=== PATIENT | male | born 1995 | race African-American/Black ===

== ENCOUNTER 2023-08-10 13:08 | Observation (INO) | payer OTHER ==
[2023-08-10 14:15] LABS: BASO % 0.5 % (0-2.0); EOS % 3.1 % (0-4.5); HEMATOCRIT 42.7 % (35.4-49); LYMPH % 24.1 % (8-40); MCH 28.5 pg (25.7-33.7); MCHC 32.7 g/dl (32.0-35.9); MEAN CELL VOLUME 87.3 fl (80-96); MEAN PLT VOLUME 7.4 fl (7.5-11.1); MONO % 8.8 % (3.8-10.2); NEUT % 63.5 % (42.8-82.8); PLATELET COUNT 205 10^3/uL (134-434); RBC 4.89 M/mm3 (4.00-5.60); WHITE BLOOD COUNT 6.1 K/mm3 (4.0-10.0)
[2023-08-10] MEDS: SODIUM CHLORIDE 0.9% 500 ML INFUS.BAG IV ONE ×2 (14:17→15:34)
[2023-08-10 14:22] LABS: INR 0.99 (0.83-1.09); PROTHROMBIN TIME (PATIENT) 11.2 SEC (9.7-13.0)
[2023-08-10 14:26] LABS: ACTIVATED PTT 27.6 SECONDS (25.2-36.5)
[2023-08-10 14:27] LABS: CHLORIDE 110 mmol/L (98-107); POTASSIUM 3.7 mmol/L (3.5-5.1); SODIUM 142 mmol/L (136-145)
[2023-08-10 14:29] LABS: ANION GAP 3 mmol/L (4-13); CALCIUM 8.5 mg/dL (8.5-10.1); CO2 29 mmol/L (21-32)
[2023-08-10 14:30] LABS: ALBUMIN 3.3 g/dl (3.4-5.0); BLOOD UREA NITROGEN 7.1 mg/dL (7-18); MAGNESIUM 2.2 mg/dL (1.8-2.4)
[2023-08-10 14:32] LABS: SGOT/AST 18 U/L (15-37); SGPT/ALT 21 U/L (13-61)
[2023-08-10 14:33] LABS: CREATININE 0.9 mg/dL (0.55-1.3); PHOSPHOROUS 2.2 mg/dL (2.5-4.9)
[2023-08-10 14:34] LABS: BILIRUBIN,TOTAL 0.9 mg/dL (0.2-1); TOT PROT 6.2 g/dl (6.4-8.2)
[2023-08-10 14:35] LABS: ALK PHOS 72 U/L (45-117)
[2023-08-10 14:43] LABS: GLUCOSE,RANDOM 65 mg/dL (74-106)
[2023-08-10] MEDS: DEXTROSE 5%-NORMAL SALINE 500 ML IV ONE (16:35)
[2023-08-10 16:51] LABS: PH,URINE 6.5 (5.0-8.0); URINE APPEARANCE CLEAR; URINE BILIRUBIN NEGATIVE (NEGATIVE); URINE COLOR YELLOW; URINE GLUCOSE (UA) NEGATIVE (NEGATIVE); URINE KETONE NEGATIVE (NEGATIVE); URINE LEUK ESTERASE NEGATIVE (NEGATIVE); URINE NITRITE NEGATIVE (NEGATIVE); URINE PROTEIN NEGATIVE (NEGATIVE)
[2023-08-10 16:57] LABS: COCAINE, UR NEGATIVE (NEGATIVE); METHADONE, UR NEGATIVE (NEGATIVE); URINE BENZODIAZEPINES NEGATIVE (NEGATIVE)
[2023-08-10 16:58] LABS: PHENCYCLIDINE,URINE NEGATIVE (NEGATIVE); URINE BARBITURATES NEGATIVE (NEGATIVE)
[2023-08-10 17:00] LABS: OPIATES, URI NEGATIVE (NEGATIVE); URINE AMPHETAMINES NEGATIVE (NEGATIVE)
[2023-08-10 18:01] LABS: HIV INTERPRETATION NEGATIVE (NEGATIVE)
[2023-08-10] MEDS ORDERED: NAPH,MB-DB/K PH,MBDB POWDER PACKET ONE (18:12)
[2023-08-10] MEDS: NAPH,MB-DB/K PH,MBDB POWDER PACKET PO ONE (18:14)
[2023-08-10 23:37] VITALS: BMI 19.3
[2023-08-11] MEDS: GABAPENTIN 300 MG CAPSULE PO SCH (06:14)
[2023-08-11 08:59] LABS: HEMATOCRIT 39.9 % (35.4-49); HEMOGLOBIN 13.5 GM/dL (11.7-16.9); MCHC 33.8 g/dl (32.0-35.9); MEAN CELL VOLUME 85.7 fl (80-96); MEAN PLT VOLUME 7.7 fl (7.5-11.1); PLATELET COUNT 197 10^3/uL (134-434); RBC 4.66 M/mm3 (4.00-5.60); WHITE BLOOD COUNT 5.2 K/mm3 (4.0-10.0)
[2023-08-11 09:21] LABS: POTASSIUM 4.2 mmol/L (3.5-5.1)
[2023-08-11 09:24] LABS: ALBUMIN 2.9 g/dl (3.4-5.0); BLOOD UREA NITROGEN 8.6 mg/dL (7-18); CALCIUM 8.2 mg/dL (8.5-10.1)
[2023-08-11 09:27] LABS: CREATININE 0.7 mg/dL (0.55-1.3); PHOSPHOROUS 3.2 mg/dL (2.5-4.9)
[2023-08-11 09:29] LABS: BILIRUBIN,TOTAL 0.5 mg/dL (0.2-1); TOT PROT 5.4 g/dl (6.4-8.2)
[2023-08-11] MEDS: risperiDONE 1 MG TABLET PO SCH (10:54)
[2023-08-11 17:44] VITALS: BP 112/72; PULSE 92; RESP 18; TEMP 99
== END 2023-08-11 17:44 | disposition home or self-care (01) ==
LOC: JER 13:08 → JERBED 20:12 → J7W 22:25
PROVIDERS: ADMIT Internal Medicine; ATTEND Internal Medicine
PROC: 3E0337Z Introduction of Electrolytic and Water Balance Substance into Peripheral Vein, Percutaneous Approach (ICD-10-PCS; principal; 2023-08-10)
DX: G93.41 Metabolic encephalopathy (principal); F43.10 Post-traumatic stress disorder, unspecified; F31.9 Bipolar disorder, unspecified; F41.9 Anxiety disorder, unspecified; F84.0 Autistic disorder; L40.9 Psoriasis, unspecified; Z59.00 Homelessness unspecified
CPT/HCPCS: 0241U-QW; 36415; 70450-TC; 71045-TC-FY; 80053; 80307; 81003; 82962; 83735; 84100; 84443; 85025; 85027; 85610; 85730; 87086; 87389; 87491; 87591; 93005; 93010; 96360; 99285-25; G0378